=== PATIENT | female | born 1985 | race Asian ===

== ENCOUNTER 2021-06-15 16:20 | Emergency (ER) | payer OTHER ==
[~2021-06-15] VITALS: Ht 152.4 cm; Wt 50.0 kg
[2021-06-15 18:51] VITALS: BP 120/71
[2021-06-15 19:13] LABS: BILIRUBIN,URINE NEGATIVE (NEG); CLARITY,URINE CLEAR; COLOR,URINE YELLOW; NITRITE,URINE NEGATIVE (NEG); PROTEIN,URINE NEGATIVE (NEG-TRACE); UROBILINOGEN,URINE 0.2 mg/dL (0.2 mg/dL)
[2021-06-15 19:16] LABS: BASO % 0 % (0-3); EOS # 0.1 x10^3/uL (0.0-0.7); EOS % 1 % (0-3); HEMATOCRIT 37.2 % (36.0-47.0); HEMOGLOBIN 12.6 g/dL (12.0-15.5); LYMPH # 1.5 x10^3/uL (1.0-4.8); LYMPH % 22 % (24-48); MEAN CORPUSCULAR HEMOGLOBIN 28 pg (25-35); MEAN CORPUSCULAR HGB CONC 34 g/dL (31-37); MEAN CORPUSCULAR VOLUME 81 fL (79-100); MONO # 0.7 x10^3/uL (0.0-1.1); MONO % 10 % (0-9); NEUT # 4.6 x10^3/uL (1.8-7.7); NEUT % 66 % (31-73); PLATELET COUNT 194 x10^3/uL (140-400); RED BLOOD COUNT 4.58 x10^6/uL (3.50-5.40); RED CELL DISTRIBUTION WIDTH 12.4 % (11.5-14.5); WHITE BLOOD COUNT 6.9 x10^3/uL (4.0-11.0)
[2021-06-15 19:19] LABS: BACTERIA,URINE MODERATE /HPF (0-FEW)
[2021-06-15 19:20] LABS: RBC,URINE 0 /HPF (0-2); WBC,URINE 0 /HPF (0-4)
[2021-06-15 19:24] LABS: CALCIUM 8.8 mg/dL (8.5-10.1); CREATININE 0.4 mg/dL (0.6-1.0); GFR 181.6; POTASSIUM 3.7 mmol/L (3.5-5.1)
[2021-06-15 19:30] LABS: ALBUMIN 3.5 g/dL (3.4-5.0); ALBUMIN/GLOBULIN RATIO 0.8 (1.0-1.7); TOTAL BILIRUBIN 0.3 mg/dL (0.2-1.0); TOTAL PROTEIN 7.7 g/dL (6.4-8.2)
--- NOTE | 2021-06-15 20:37 | RAD ---
EXAM: OBSTETRIC ULTRASOUND, <14 WEEKS. HISTORY: Pelvic pain in . COMPARISON: None. FINDINGS: Sonographic evaluation of the pelvis was performed transabdominally. The uterus is anteverted and measures 10.9 x 7.8 x 7.5 cm. There is a single intrauterine gestation m easuring 9 weeks 1 day. heart rate is 168 bpm. A yolk sac is visualized. The gestational sac is regular. There is no subchorionic collection. The right ovary measures 2.6 x 2.5 x 2.4 cm. The left ovary measures 2.4 x 2.8 x 3.0 cm. Dominant fol licle in the left ovary measures 2.1 cm. There is normal Doppler flow bilaterally. There is no adnexa l mass. There is no significant free fluid. IMPRESSION: 1. Single intrauterine gestation measuring 9 weeks 1 day. heart rate 168 bpm. Electronically signed by: Cristine Hallman MD (06/15/2021 8:34 PM) [facility]
--- NOTE | 2021-06-15 21:15 | PHYS DOC ---
Past Medical History Past Surgical History: No Surgical History Smoking Status: Never Smoker Alcohol Use: None General Adult EDM: Chief Complaint: HEADACHE HPI: HPI: Patient is a 36 year old [place] speaking female 4 para 3 with 1 mi scarriage presenting to the ED today complaining of a mild intermittent throbbing headache, nausea, dizziness, symptoms have been going on for 3 days. Patient is also complaining of mild intermittent lower abdominal cramping and back cramping, symptoms have been going on for 3 days. She states she noticed some trace amount of blood when she wipes herself today. Patient denies any fever. Denies any cough or congestion. She states she received a Covid vaccine by [employer] a couple months ago. Patient's friend interpreted for [place] by patient's choice Review of Systems: Review of Systems: Constitutional: Denies fever or chills. [] GI: Reports abdominal cramping, nausea, vaginal bleeding denies vomiting, bloody stools or diarrhea. [] : Denies dysuria. [] Musculoskeletal: Reports low back cramping Integument: Denies rash. [] Neurologic: Reports headache and dizziness denies focal weakness or sensory changes. [] Psychiatric: Denies depression or anxiety. [] Heart Score: C/O Chest Pain: N/A Risk Factors: Risk Factors: DM, Current or recent (<one month) smoker, HTN, HLP, family history of CAD, obesity. Risk Scores: Score 0 - 3: 2.5% MACE over next 6 weeks - Discharge Home Score 4 - 6: 20.3% MACE over next 6 weeks - Admit for Clinical Observation Score 7 - 10: 72.7% MACE over next 6 weeks - Early Invasive Strategies Allergies: Allergies: Allergies Coded Allergies Type Severity Reaction Last Updated Verified No Known Drug Allergies 06/15/21 No Physical Exam: PE: Constitutional: Well developed, well nourished, no acute distress, non-toxic appearance. [] HENT: Normocephalic, atraumatic, bilateral external ears normal, oropharynx moist, no oral exudates, nose normal. [] Eyes: PERRLA, EOMI, conjunctiva normal, no discharge. [] Neck: Normal range of motion, no tenderness, supple, no stridor. [] Cardiovascular:Heart rate regular rhythm, no murmur [] Lungs & Thorax: Bilateral breath sounds clear to auscultation [] Abdomen: Bowel sounds normal, soft, no tenderness, no masses, no pulsatile masses. [] Pelvic exam External pelvic appears normal, cervix is visualized, closed, no CMT, trace amount of brownish discharge in the vaginal vault, no active bleeding. No adnexal tenderness. Skin: Warm, dry, no erythema, no rash. [] Back: No tenderness, no CVA tenderness. [] Extremities: No tenderness, no cyanosis, no clubbing, ROM intact, no edema. [] Neurologic: Alert and oriented X 3, normal motor function, normal sensory function, no focal deficits noted. [] Psychologic: Affect normal, judgement normal, mood normal. [] Current Patient Data: Labs: Laboratory Tests Test 06/15/21 18:40 06/15/21 18:43 06/15/21 19:09 Urine Collection Type Unknown Urine Color Yellow Urine Clarity Clear Urine pH 6.0 (<5.0-8.0) Urine Specific [place] 1.010 (1.000-1.030) Urine Protein Negative mg/dL (NEG-TRACE) Urine Glucose (UA) Negative mg/dL (NEG) Urine Ketones (Stick) 40 mg/dL (NEG) Urine Blood Negative (NEG) Urine Nitrite Negative (NEG) Urine Bilirubin Negative (NEG) Urine Urobilinogen Dipstick 0.2 mg/dL (0.2 mg/dL) Urine Leukocyte Esterase Negative (NEG) Urine RBC 0 /HPF (0-2) Urine WBC 0 /HPF (0-4) Urine Squamous Epithelial Cells Mod /LPF Urine Bacteria Moderate /HPF (0-FEW) Urine Mucus Slight /LPF POC Urine HCG, Qualitative Hcg positive (Negative) White Blood Count 6.9 x10^3/uL (4.0-11.0) Red Blood Count 4.58 x10^6/uL (3.50-5.40) Hemoglobin 12.6 g/dL (12.0-15.5) Hematocrit 37.2 % (36.0-47.0) Mean Corpuscular Volume 81 fL (79-100) Mean Corpuscular Hemoglobin 28 pg (25-35) Mean Corpuscular Hemoglobin Concent 34 g/dL (31-37) Red Cell Distribution Width 12.4 % (11.5-14.5) Platelet Count 194 x10^3/uL (140-400) Neutrophils (%) (Auto) 66 % (31-73) Lymphocytes (%) (Auto) 22 % (24-48) L Monocytes (%) (Auto) 10 % (0-9) H Eosinophils (%) (Auto) 1 % (0-3) Basophils (%) (Auto) 0 % (0-3) Neutrophils # (Auto) 4.6 x10^3/uL (1.8-7.7) Lymphocytes # (Auto) 1.5 x10^3/uL (1.0-4.8) Monocytes # (Auto) 0.7 x10^3/uL (0.0-1.1) Eosinophils # (Auto) 0.1 x10^3/uL (0.0-0.7) Basophils # (Auto) 0.0 x10^3/uL (0.0-0.2) Maternal Serum HCG Beta Subunit 308825 mIU/mL (0-5) H Sodium Level 135 mmol/L (136-145) L Potassium Level 3.7 mmol/L (3.5-5.1) Chloride Level 101 mmol/L (98-107) Carbon Dioxide Level 26 mmol/L (21-32) Anion Gap 8 (6-14) Blood Urea Nitrogen 6 mg/dL (7-20) L Creatinine 0.4 mg/dL (0.6-1.0) L Estimated GFR (Cockcroft-Gault) 181.6 BUN/Creatinine Ratio 15 (6-20) Glucose Level 91 mg/dL (70-99) Calcium Level 8.8 mg/dL (8.5-10.1) Total Bilirubin 0.3 mg/dL (0.2-1.0) Aspartate Amino Transferase (AST) 14 U/L (15-37) L Alanine Aminotransferase (ALT) 24 U/L (14-59) Alkaline Phosphatase 36 U/L (46-116) L Total Protein 7.7 g/dL (6.4-8.2) Albumin 3.5 g/dL (3.4-5.0) Albumin/Globulin Ratio 0.8 (1.0-1.7) L Laboratory Tests 06/15/21 19:09 Laboratory Tests 06/15/21 19:09 Microbiology 06/15/21 Wet Prep - Final, Complete Vital Signs: Vital Signs Date Time Temp Pulse Resp B/P (MAP) Pulse Ox O2 Delivery O2 Flow Rate FiO2 06/15/21 18:51 98.2 71 16 120/71 (87) 100 Room Air 98.2 EKG: EKG: [] Radiology/Procedures: Radiology/Procedures: []PROCEDURE: OB <14 WKS W/TV EXAM: OBSTETRIC ULTRASOUND, <14 WEEKS. HISTORY: Pelvic pain in . COMPARISON: None. FINDINGS: Sonographic evaluation of the pelvis was performed transabdominally. The uterus is anteverted and measures 10.9 x 7.8 x 7.5 cm. There is a single intrauterine gestation measuring 9 weeks 1 day. heart rate is 168 bpm. A yolk sac is visualized. The gestational sac is regular. There is no subchorionic collection. The right ovary measures 2.6 x 2.5 x 2.4 cm. The left ovary measures 2.4 x 2.8 x 3.0 cm. Dominant follicle in the left ovary measures 2.1 cm. There is normal Doppler flow bilaterally. There is no adnexal mass. There is no significant free fluid. IMPRESSION: 1. Single intrauterine gestation measuring 9 weeks 1 day. heart rate 168 bpm. Electronically signed by: Cristine Hallman MD (06/15/2021 8:34 PM) [facility] DICTATED and SIGNED BY: AMADA HALLMAN MD DATE: 06/15/[id number] 0 Course & Med Decision Making: Course & Med Decision Making Pertinent Labs and Imaging studies reviewed. (See chart for details) This is a 36-year-old female patient 4 para 3 with 1 miscarriage presenting today with multiple complaints including dizziness, headache, nausea, vaginal bleeding, lower back cramping and lower abdominal cramping, symptoms for 3 days. Positive urine hCG. Beta hCG 146,653. CBC, CMP with no acute findings. Wet prep no acute findings. UA is grossly contaminated with squamous cells epithelium otherwise no nitrates or leukocytes OB ultrasound noted for an IUP 9 weeks 1 day heart rate 163. Blood group A+ Discharge to home, instructed to maintain pelvic rest until seen by the OB. Provided return precautions and discharged in stable condition. Dragon Disclaimer: Dragon Disclaimer: This electronic medical record was generated, in whole or in part, using a voice recognition dictation system. Departure Departure Impression: Primary Impression: Abdominal pain during Qualified Codes: O26.891 - Other specified related conditions, first trimester; R10.9 - Unspecified abdominal pain Additional Impressions: state, incidental Threatened miscarriage in early Head ache Qualified Codes: R51.9 - Headache, unspecified Dizziness Disposition: 01 HOME / SELF CARE / HOMELESS Condition: STABLE Referrals: UNKNOWN PCP NAME (PCP) JULIA DOMINGUEZ MD follow up in one week Patient Instructions: ABCs of , Threatened Miscarriage, [id number] Additional Instructions: You were evaluated in the emergency room, congratulations you are 9 weeks 1 day . Please maintain pelvic rest, no intercourse or heavy strenuous activities until seen by your ELECTRODE TURNER AND FINISHER. Come back to the ED at any point symptoms worsen. GREGORY GILMAN MECHANICAL SERVICE SPECIALIST Jun 15, 2021 21:15
[2021-06-17 19:12] LABS: GC PROBE Negative (Negative)
== END 2021-06-15 21:41 | disposition home or self-care (01) ==
LOC: ER 16:20
DX: O20.0 Threatened abortion (principal); R51.9 Headache, unspecified; R42 Dizziness and giddiness; R10.30 Lower abdominal pain, unspecified; M54.59 Other low back pain; Z3A.09 9 weeks gestation of pregnancy
CPT/HCPCS: 36415; 76801; 76817; 80053; 81001; 81025; 84702; 85025; 86850; 86900; 86901; 87086; 87491; 87591; 99284; Q0111

== ENCOUNTER 2021-12-27 15:17 | Emergency (ER) | payer OTHER ==
[~2021-12-27] VITALS: Ht 147.3 cm; Wt 53.8 kg
[2021-12-27 15:20] VITALS: BP 106/64
[2021-12-27] MEDS: HYDROcodone/APAP 5/325MG 1 TAB TABLET PO ONE (16:01)
[2021-12-27] MEDS: BACITRACIN TOPICAL OINT PACKET. TP ONE (16:02)
--- NOTE | 2021-12-27 16:37 | RAD ---
Exam Date: 12/27/2021 3:52 PM XR LT TOE 2+ VIEWS Indication: Pain. Reason: blunt trauma attention great toe-TOENAIL BLEEDING / Spl. Instructions: / History: . FINDINGS/ IMPRESSION: No acute fracture or dislocation. Alignment and joint spaces are maintained. The soft tissues are w ithin normal limits. Electronically signed by: Gera Pickett MD (12/27/2021 4:35 PM) [id number]
--- NOTE | 2021-12-27 17:07 | PHYS DOC ---
Past Medical History Past Surgical History: No Surgical History Smoking Status: Never Smoker Alcohol Use: None General Adult EDM: Chief Complaint: TOE PROBLEM HPI: HPI: Patient is a 36-year-old female, vital signs reviewed, presents to the emergency department complaining of left great toe pain after a door was opened and dislodged her toenail from her toe today. Patient states she removed the toenail prior to arrival to the emergency department today, reports 10 out of 10 pain. Denies taking any pain medication prior to arrival to the emergency department. Patient states she is 36 weeks 4 days per EDC. Patient does not recall the exact date of her last menstrual cycle. Patient is a G5, P3 SAB 1. Denies vaginal bleeding or vaginal discharge, denies increased urinary frequency, urinary pressure, urinary burning, urinary pain, hematuria or other dysuria. Patient states she can feel her baby move. Patient does not have any concerns about her . Patient states she is here for her left great toe pain. Patient reports last tetanus immunization was greater than 5 years ago. Patient denies other physical complaints or physical concerns. Review of Systems: Review of Systems: 14 body systems of review of systems have been reviewed. See HPI for pertinent positives and negative responses, otherwise all other systems are negative, nonpertinent or noncontributory. Constitutional: Negative except as outlined in HPI above. Skin: Negative except as outlined in HPI above. Eyes: Negative except as outlined in HPI above. HENT: Negative except as outlined in HPI above. Respiratory: Negative except as outlined in HPI above. Cardiovascular: Negative except as outlined in HPI above. GI: Negative except as outlined in HPI above. : Negative except as outlined in HPI above. Musculoskeletal: Negative except as outlined in HPI above. Integument: Negative except as outlined in HPI above. Neurologic: Negative except as outlined in HPI above. Endocrine: Negative except as outlined in HPI above. Lymphatic: Negative except as outlined in HPI above. Psychiatric: Negative except as outlined in HPI above. Heart Score: C/O Chest Pain: No Risk Factors: Risk Factors: DM, Current or recent (<one month) smoker, HTN, HLP, family history of CAD, obesity. Risk Scores: Score 0 - 3: 2.5% MACE over next 6 weeks - Discharge Home Score 4 - 6: 20.3% MACE over next 6 weeks - Admit for Clinical Observation Score 7 - 10: 72.7% MACE over next 6 weeks - Early Invasive Strategies Current Medications: Current Medications Medications (Trade) Dose Ordered Sig/Mimi Start Time Stop Time Status Last Admin Dose Admin Acetaminophen/ Hydrocodone Bitart (Lortab 5/325) 1 tab 1X ONCE 12/27/21 15:45 12/27/21 15:53 DC 12/27/21 16:01 1 TAB Bacitracin (Bacitracin Zinc Oint Pkt) 1 pkt 1X ONCE 12/27/21 15:45 12/27/21 15:53 DC 12/27/21 16:02 1 PKT Diphtheria/ Tetanus/Acell Pertussis (Boostrix) 0.5 ml ONCE ONCE 12/27/21 15:45 12/27/21 15:53 DC Allergies: Allergies: Allergies Coded Allergies Type Severity Reaction Last Updated Verified No Known Drug Allergies 12/27/21 No Physical Exam: PE: Constitutional: Well developed, well nourished, no acute distress, non-toxic appearance. 36-year-old female in no apparent distress. HENT: Normocephalic, atraumatic. Eyes: Conjunctiva normal, no discharge. Neck: Normal range of motion, no stridor. Cardiovascular: No cyanosis appreciated, distal cap refill less than 2 seconds. Lungs & Thorax: Patient is in no respiratory distress, no audible adventitious lung sounds appreciated. Abdomen: Nontender, no abnormalities noted. Abdomen is round, distended, fundal height 16 cm above umbilicus, movement is appreciated. heart tones per Doppler equals 155 left lower abdominal quadrant. Skin: Warm, dry, no erythema, no rash. Back: No tenderness, no deformities. Extremities: No tenderness, no cyanosis, no clubbing, ROM intact, no edema. Except for the left great toe, toenail is avulsed, the toenail bed is not bleeding, there is no deformity present, full flexion and extension of toes. 2+ dorsalis pedis pulses bilateral. Distal cap refill less than 2 seconds equal bilateral lower extremities. Neurologic: Alert and oriented X 3, normal motor function, normal sensory function, no focal deficits noted. Psychologic: Affect normal, judgement normal, mood normal. Current Patient Data: Vital Signs: Vital Signs Date Time Temp Pulse Resp B/P (MAP) Pulse Ox O2 Delivery O2 Flow Rate FiO2 12/27/21 16:01 20 99 Room Air 12/27/21 15:20 98.2 84 106/64 (78) 98.2 EKG: EKG: [] Radiology/Procedures: Radiology/Procedures: REASON: blunt trauma attention great toe-TOENAIL BLEEDING PROCEDURE: TOES LEFT Exam Date: 12/27/2021 3:52 PM XR LT TOE 2+ VIEWS Indication: Pain. Reason: blunt trauma attention great toe-TOENAIL BLEEDING / Spl. Instructions: / History: . FINDINGS/ IMPRESSION: No acute fracture or dislocation. Alignment and joint spaces are maintained. The soft tissues are within normal limits. Electronically signed by: Gera Pickett MD (12/27/2021 4:35 PM) [id number] Course & Med Decision Making: Course & Med Decision Making Pertinent Labs and Imaging studies reviewed. (See chart for details) 36-year-old female, vital signs reviewed, presents emergency department concerning left great toenail injury just prior to arrival. Physical examination is consistent with patient's explanation of events. The toenail is not present on the great toe of the left foot. There is no bleeding. Will bring patient's tetanus immunization up-to-date today in the emergency department, will give p.o. pain medication. X-ray of left great toe. Cleanse and bacitracin application and dressed by ED nursing staff. The patient is , denies any injury to her abdomen, movement was appreciated during physical examination, heart tones were within normal limits. The x-ray of the left great toe was negative for acute fracture. Discussed with patient daily cleansing and application of bacitracin and bandage, expectation of toenail regrowth, keep all appointments with OB and TRAINING OFFICER, continue to take any prescription medications as directed by her primary care or OB doctor, return to ER precautions and concerns were discussed, patient gave verbal understanding of and is amenable to ED discharge planning. Discussed with the patient all findings and diagnostic testing as well as the need to follow-up with their primary care provider for further evaluation and treatment or return to the ED if any new or worsening symptoms. Strict return precautions were also discussed at length, the patient voiced understanding and agreement with the discharge planning. The patient was nontoxic in appearance, in no apparent distress, and hemodynamically stable at the time of disposition. Patient is Irish speaking, used corporate concierge blue phone for all patient interactions. [employer] Disclaimer: [employer] Disclaimer: This electronic medical record was generated, in whole or in part, using a voice recognition dictation system. Departure Departure Impression: Primary Impression: Great toe pain Qualified Codes: M79.675 - Pain in left toe(s) Additional Impression: Toenail avulsion Qualified Codes: S91.209A - Unspecified open wound of unspecified toe(s) with damage to nail, initial encounter Disposition: HOME / SELF CARE / HOMELESS Condition: GOOD Referrals: UNKNOWN PCP NAME (PCP) Patient Instructions: Fingernail or Toenail Loss, Wound Care, [id number] Additional Instructions: You were seen today in the emergency department after a door injury to your left great toenail causing it to fall off. An x-ray performed today did not show any broken bones. Your tetanus immunization was brought up-to-date today in the emergency department with a medication called Tdap. Please update your immunization records accordingly. Please let your HIDES SOAKER physician know that your tetanus immunization is up-to-date. It may take 12 to 18 months for your great toenail to grow back, sometimes when toenails are removed they grow back looking different in color and texture and thickness. Keep toe elevated over the next 48 to 72 hours to help reduce any pain and swelling. You may take Tylenol as needed for returning discomfort. Please cleanse with mild soap and water only, do not use peroxide or alcohols or other cleaning agents. Coat the unprotected area with antibiotic ointment and top with a nonstick/nonadherent bandage. Change the bandage every day and or whenever it gets wet. If any part gets stuck, soak it under warm running water until it slips off. For the first couple of days use any pain and swelling by propping or elevating your foot. Have your doctor recheck your toe wound sometime next week. You can obtain [id number] antibiotic ointment at any local pharmacy. Thank you for visiting our Emergency Department. It was a pleasure taking care of you today in the emergency department and we appreciate you trusting us with your care. If any additional problems come up don't hesitate to return to visit us. Please follow up with your primary care provider so they can plan additional care if needed and know about the problem that you had. If symptoms worsen come back to the Emergency Department. Any concerning symptoms that start such as chest pain, shortness of air, weakness or numbness on one side of the body, running high fevers or any other concerning symptoms return to the ER. JULIA JIMENEZ APRN Dec 27, 2021 17:07
[2021-12-27] MEDS: DIPHTH,PERTUSS(ACELL),TET TOX 0.5 ML DISP.SYRIN. VAX IM ONE (17:50)
== END 2021-12-27 18:27 | disposition home or self-care (01) ==
LOC: ER 15:17
DX: O9A.213 Injury, poisoning and certain other consequences of external causes complicating pregnancy, third trimester (principal); S91.102A Unspecified open wound of left great toe without damage to nail, initial encounter; Z3A.38 38 weeks gestation of pregnancy; W23.0XXA Caught, crushed, jammed, or pinched between moving objects, initial encounter; Y93.89 Activity, other specified; Y92.89 Other specified places as the place of occurrence of the external cause; Y99.8 Other external cause status
CPT/HCPCS: 73660; 90471; 90715; 99283; 99284

== ENCOUNTER 2022-01-21 17:49 | Emergency (ER) | payer OTHER ==
[~2022-01-21] VITALS: Ht 147.3 cm; Wt 49.5 kg
--- NOTE | 2022-01-21 19:33 | PHYS DOC ---
Past Medical History Past Surgical History: Additional Past Surgical Histo: 01/13/22 Smoking Status: Never Smoker Alcohol Use: None General Adult EDM: Chief Complaint: ABDOMINAL PAIN HPI: HPI: Patient is a 37 year old female with no significant medical history who presents to the ED today complaining of incisional pain that has been going on since 01/13/2022 after having a . Patient denies any unusual vaginal bleeding. Denies any nausea, vomiting, diarrhea. Reports dysuria. Patient is Croatian speaking and the daughter is interpreting Review of Systems: Review of Systems: Constitutional: Denies fever or chills. [] Eyes: Denies change in visual acuity. [] HENT: Denies nasal congestion or sore throat. [] Respiratory: Denies cough or shortness of breath. [] Cardiovascular: Denies chest pain or edema. [] GI: Reports incisional pain, denies nausea, vomiting, bloody stools or diarrhea. [] : Denies dysuria. [] Musculoskeletal: Denies back pain or joint pain. [] Integument: Denies rash. [] Neurologic: Denies headache, focal weakness or sensory changes. [] Psychiatric: Denies depression or anxiety. [] Heart Score: C/O Chest Pain: N/A Risk Factors: Risk Factors: DM, Current or recent (<one month) smoker, HTN, HLP, family history of CAD, obesity. Risk Scores: Score 0 - 3: 2.5% MACE over next 6 weeks - Discharge Home Score 4 - 6: 20.3% MACE over next 6 weeks - Admit for Clinical Observation Score 7 - 10: 72.7% MACE over next 6 weeks - Early Invasive Strategies Allergies: Allergies: Allergies Coded Allergies Type Severity Reaction Last Updated Verified No Known Drug Allergies 12/27/21 No Physical Exam: PE: Constitutional: Well developed, well nourished, no acute distress, non-toxic appearance. [] HENT: Normocephalic, atraumatic, bilateral external ears normal, oropharynx moist, no oral exudates, nose normal. [] Eyes: PERRLA, EOMI, conjunctiva normal, no discharge. [] Neck: Normal range of motion, no tenderness, supple, no stridor. [] Cardiovascular:Heart rate regular rhythm, no murmur [] Lungs & Thorax: Bilateral breath sounds clear to auscultation [] Abdomen: Bowel sounds normal, soft, no tenderness, no masses, no pulsatile masses. [] Pelvic region with a well approximated incision, no signs of infection, no dehiscence. Skin: Warm, dry, no erythema, no rash. [] Back: No tenderness, no CVA tenderness. [] Extremities: No tenderness, no cyanosis, no clubbing, ROM intact, no edema. [] Neurologic: Alert and oriented X 3, normal motor function, normal sensory function, no focal deficits noted. [] Psychologic: Affect normal, judgement normal, mood normal. [] Current Patient Data: Vital Signs: Vital Signs Date Time Temp Pulse Resp B/P (MAP) Pulse Ox O2 Delivery O2 Flow Rate FiO2 01/21/22 19:05 98.1 53 16 124/81 (95) 98 Room Air 98.1 EKG: EKG: [] Radiology/Procedures: Radiology/Procedures: []PROCEDURE: PELVIS W/TV Transvaginal pelvis canceled no charge Transvaginal examination was attempted twice and the patient refused. Electronically signed by: Marley Lopez III, MD (01/21/2022 8:28 PM) [facility] DICTATED and SIGNED BY: MARLEY LOPEZ III, MD DATE: 01/21/222026 PROCEDURE: CT ABDOMEN PELVIS WO CONTRAST Exam: CT of abdomen and pelvis without contrast INDICATION: Pelvic pain, Back pain TECHNIQUE: Sequential axial images through the abdomen and pelvis obtained without IV contrast. Sagittal and coronal reformatted images were reconstructed from the axial data and reviewed. Exposure: One or more of the following in the visualized dose reduction techniques were utilized for this examination: 1. Automated exposure control 2. Adjustment of the MA and/or KV according to patient size 3. Use of iterative of reconstructive technique Comparisons: None FINDINGS: Heart size is normal. No pericardial effusion. Visualized lung bases are clear. No pleural effusion. Evaluation of the solid organs is limited secondary noncontrast technique. Liver, spleen, pancreas, gallbladder and adrenals are unremarkable. No perinephric inflammation or hydronephrosis. No renal or ureteral calculi are identified. Bladder is partially distended and not well evaluated. Uterus is enlarged with a post gravid appearance. No abnormal adnexal mass. Moderate amount of stool is noted throughout the colon. Appendix is normal. Abdominal aorta has normal course and caliber. No enlarged abdominal lymph nodes are identified. No suspicious osseous lesions or acute fractures. Small amount of soft tissue air in the subcutaneous fat of the right lower quadrant anterior abdominal wall, likely related to recent procedure. IMPRESSION: 1. No acute process identified within the abdomen or pelvis. 2. Post gravid appearance of the uterus. Electronically signed by: Vincent Martin MD (01/21/2022 9:22 PM) [facility] DICTATED and SIGNED BY: VINCENT MARTIN MD DATE: 01/21/222115 Course & Med Decision Making: Course & Med Decision Making Pertinent Labs and Imaging studies reviewed. (See chart for details) This a 37-year-old female patient presented to the ED today to be evaluated for incisional pain. She had a on 01/13/2022 pain for one week CBC, CMP, UA-negative for any acute findings, pelvic ultrasound was attempted- patient unable to tolerate the procedure. CT of the abdomen and pelvis is negative. Discharge to home. Reminded incisional pain from her is more than usual. It will improve over time. Discharged on ibuprofen. Follow- up with PCP and TRAFFIC CIRCUIT ENGINEER next week Lillian Disclaimer: Lillian Disclaimer: This electronic medical record was generated, in whole or in part, using a voice recognition dictation system. Departure Departure Impression: Primary Impression: Pain at surgical incision Disposition: HOME / SELF CARE / HOMELESS Condition: STABLE Referrals: UNKNOWN PCP NAME (PCP) follow up with your OBGYN and primary care doctor next week Patient Instructions: Incision Care, [id number] Additional Instructions: You were evaluated in the emergency room for pain around your . This is not unusual. It will improve over time. Take the prescribed medications as needed for pain. Please follow-up with your doctor including your TRAFFIC CIRCUIT ENGINEER next week. Do not lift anything heavier than your baby. Do not overwork yourself. Scripts Ibuprofen (IBUPROFEN) 800 Mg Tablet 800 MG PO PRN Q6HRS PRN for INFLAMMATION, #30 TAB Prov: GREGORY GILMAN APRN 01/21/22 GREGORY GILMAN APRN January 21, 2022 19:32
[2022-01-21] MEDS: HYDROcodone/APAP 5/325MG 1 TAB TABLET PO ONE (19:43)
[2022-01-21 19:49] LABS: BASO # 0.1 x10^3/uL (0.0-0.2); BASO % 1 % (0-3); EOS % 1 % (0-3); HEMOGLOBIN 11.6 g/dL (12.0-15.5); LYMPH # 1.5 x10^3/uL (1.0-4.8); LYMPH % 25 % (24-48); MEAN CORPUSCULAR HEMOGLOBIN 26 pg (25-35); MEAN CORPUSCULAR HGB CONC 32 g/dL (31-37); MEAN CORPUSCULAR VOLUME 81 fL (79-100); MONO # 0.4 x10^3/uL (0.0-1.1); MONO % 6 % (0-9); NEUT # 3.8 x10^3/uL (1.8-7.7); NEUT % 66 % (31-73); PLATELET COUNT 277 x10^3/uL (140-400); RED BLOOD COUNT 4.46 x10^6/uL (3.50-5.40); RED CELL DISTRIBUTION WIDTH 22.1 % (11.5-14.5); WHITE BLOOD COUNT 5.8 x10^3/uL (4.0-11.0)
[2022-01-21 20:08] LABS: BACTERIA,URINE 0 /HPF (0-FEW); RBC,URINE 0 /HPF (0-2)
[2022-01-21 20:10] LABS: ANISOCYTOSIS MOD; BURR CELLS PRESENT; PLT ESTIMATE ADEQUATE (ADEQUATE)
[2022-01-21 20:14] LABS: CALCIUM 8.7 mg/dL (8.5-10.1); CREATININE 0.5 mg/dL (0.6-1.0); GFR 139.6; POTASSIUM 3.6 mmol/L (3.5-5.1)
[2022-01-21 20:19] LABS: ALBUMIN 2.6 g/dL (3.4-5.0); ALBUMIN/GLOBULIN RATIO 0.6 (1.0-1.7); TOTAL BILIRUBIN 0.2 mg/dL (0.2-1.0); TOTAL PROTEIN 6.9 g/dL (6.4-8.2)
--- NOTE | 2022-01-21 20:30 | RAD ---
Transvaginal pelvis canceled no charge Transvaginal examination was attempted twice and the patient refused. Electronically signed by: Tylor Chua III, MD (01/21/2022 8:28 PM) [facility]
--- NOTE | 2022-01-21 21:25 | RAD ---
Exam: CT of abdomen and pelvis without contrast INDICATION: Pelvic pain, Back pain TECHNIQUE: Sequential axial images through the abdomen and pelvis obtained without IV contrast. Sagit kellie and coronal reformatted images were reconstructed from the axial data and reviewed. Exposure: One or more of the following in the visualized dose reduction techniques were utilized for this examination: 1. Automated exposure control 2. Adjustment of the MA and/or KV according to patient size 3. Use of iterative of reconstructive technique Comparisons: None FINDINGS: Heart size is normal. No pericardial effusion. Visualized lung bases are clear. No pleural effusion. Evaluation of the solid organs is limited secondary noncontrast technique. Liver, spleen, pancreas, gallbladder and adrenals are unremarkable. No perinephric inflammation or hydronephrosis. No renal or ureteral calculi are identified. Bladder is partially distended and not well evaluated. Uterus is enlarged with a post gravid appearan ce. No abnormal adnexal mass. Moderate amount of stool is noted throughout the colon. Appendix is normal. Abdominal aorta has normal course and caliber. No enlarged abdominal lymph nodes are identified. No suspicious osseous lesions or acute fractures. Small amount of soft tissue air in the subcutaneous fat of the right lower quadrant anterior abdominal wall, likely related to recent procedure. IMPRESSION: 1. No acute process identified within the abdomen or pelvis. 2. Post gravid appearance of the uterus. Electronically signed by: Vincent Means MD (01/21/2022 9:22 PM) [facility]
[2022-01-21] MEDS ORDERED: IBUP-1060 PO (22:09)
[2022-01-21 22:28] VITALS: BP 126/80
== END 2022-01-21 22:28 | disposition home or self-care (01) ==
LOC: ER 17:49
DX: G89.18 Other acute postprocedural pain (principal)
CPT/HCPCS: 36415; 74176; 76830; 76856; 80053; 81001; 85025; 99284-25; 99285-25